=== PATIENT | female | born 1960 | race Caucasian/White ===

== ENCOUNTER 2017-07-27 22:14 | Inpatient (IN) | payer OTHER ==
[2017-07-27 23:44] LABS: ADD MAN DIFF? NO
[2017-07-27 23:46] LABS: ABNORMAL IP MESSAGE 1; BASOPHILS % 0.1 % (0.0-2.0); EOSINOPHILS # 0.1 10^3/ul (0.0-0.5); EOSINOPHILS % 1.3 % (0.0-7.0); HEMATOCRIT 34.3 % (37.0-47.0); HEMOGLOBIN 11.6 g/dl (12.0-16.0); LYMPHOCYTES # 0.4 10^3/ul (0.8-2.9); LYMPHOCYTES % 3.9 % (15.0-51.0); MEAN CORPUSCULAR HEMOGLOBIN 29.7 pg (29.0-33.0); MEAN CORPUSCULAR HGB CONC 33.8 g/dl (32.0-37.0); MEAN CORPUSCULAR VOLUME 87.9 fl (82.0-101.0); MONOCYTE # 0.6 10^3/ul (0.3-0.9); MONOCYTES % 6.3 % (0.0-11.0); NEUTROPHIL # 8.5 10^3/ul (1.6-7.5); NEUTROPHILS % 88.1 % (39.0-77.0); PLATELET COUNT 282 10^3/UL (140-415); RED CELL DISTRIBUTION WIDTH 13.3 % (11.5-14.5)
[2017-07-27 23:46] LABS: WHITE BLOOD COUNT 9.7 10^3/ul (4.8-10.8)
[2017-07-27 23:52] LABS: POSITIVE DIFF @See below
[2017-07-27] MEDS: SOD CHLORIDE 0.9% 1,000 ML IV (23:55)
[2017-07-27] MEDS: HYDROmorphONE 1 MG/ML SYG IV (23:55)
[2017-07-27] MEDS: ONDANSETRON 4 MG INJ IV (23:55)
[2017-07-28 00:03] LABS: ALANINE AMINOTRANSFERASE 31 IU/L (13-69); ALBUMIN 4.1 g/dl (3.3-4.9); ALBUMIN/GLOBULIN RATIO 1.17; ALKALINE PHOSPHATASE 85 IU/L (42-121); ANION GAP 19 (8-16); ASPARTATE AMINO TRANSFERASE 20 IU/L (15-46); BILIRUBIN,INDIRECT 0.1 mg/dl (0-1.1); BILIRUBIN,TOTAL 0.1 mg/dl (0.2-1.3); BLOOD UREA NITROGEN 15 mg/dl (7-20); CALCIUM 9.2 mg/dl (8.4-10.2); CARBON DIOXIDE 27 mmol/L (21-31); CHLORIDE 101 mmol/L (97-110); CREATININE 0.68 mg/dl (0.44-1.00); GLUCOSE 123 mg/dl (70-220); LIPASE 234 U/L (23-300); POTASSIUM 3.9 mmol/L (3.5-5.1); SODIUM 143 mmol/L (135-144); TOTAL PROTEIN 7.6 g/dl (6.1-8.1)
[2017-07-28 00:45] LABS: ADD UMIC YES; UR ASCORBIC ACID NEGATIVE (NEGATIVE); UR BACTERIA FEW /HPF (NONE SEEN); UR BILIRUBIN (Dip) NEGATIVE (NEGATIVE); UR BLOOD (Dip) NEGATIVE (NEGATIVE); UR CLARITY CLEAR (CLEAR); UR COLOR YELLOW (YELLOW); UR GLUCOSE (Dip) NEGATIVE (NEGATIVE); UR KETONES (Dip) NEGATIVE (NEGATIVE); UR LEUKOCYTE ESTERASE (Dip) 2+ Leu/ul (NEGATIVE); UR NITRITE (Dip) NEGATIVE (NEGATIVE); UR RBC 3 /HPF (0-5); UR SPECIFIC GRAVITY (Dip) 1.014 (1.003-1.030); UR TOTAL PROTEIN (Dip) 1+ mg/dl (NEGATIVE); UR UROBILINOGEN (Dip) NEGATIVE (NEGATIVE); UR WBC 10 /HPF (0-5)
[2017-07-28] MEDS: CEFTRIAXONE 1 GM/50 ML (PMX) 50 ML IVPB (01:09)
[2017-07-28] MEDS: SOD CHLORIDE 0.9% 1,000 ML IV (01:09)
[2017-07-28] MEDS ORDERED: NACL 0.9% 3 ML SYG IV (03:00)
[2017-07-28] MEDS ORDERED: morphine 2 MG INJ IV (03:00)
[2017-07-28] MEDS: DEXTROSE 5%-0.45% NACL 1,000 ML IV ×3 (03:44→15:18)
[2017-07-28] MEDS: metroNIDAZOLE 500 MG/NS (PMX) 100 ML IVPB ×3 (04:36→19:05)
[2017-07-28 06:55] LABS: WHITE BLOOD COUNT 8.2 10^3/ul (4.8-10.8)
[2017-07-28 06:55] LABS: ABNORMAL IP MESSAGE 1; HEMATOCRIT 30.5 % (37.0-47.0); HEMOGLOBIN 10.3 g/dl (12.0-16.0); MEAN CORPUSCULAR HEMOGLOBIN 29.9 pg (29.0-33.0); MEAN CORPUSCULAR HGB CONC 33.8 g/dl (32.0-37.0); MEAN CORPUSCULAR VOLUME 88.4 fl (82.0-101.0); MEAN PLATELET VOLUME 9.3 fl (7.4-10.4); PLATELET COUNT 251 10^3/UL (140-415); RED BLOOD COUNT 3.45 10^6/ul (4.20-5.40); RED CELL DISTRIBUTION WIDTH 13.4 % (11.5-14.5)
[2017-07-28 07:13] LABS: ADD MAN DIFF? YES; POSITIVE DIFF @See below
[2017-07-28 07:15] LABS: ALANINE AMINOTRANSFERASE 32 IU/L (13-69); ALBUMIN 3.4 g/dl (3.3-4.9); ALBUMIN/GLOBULIN RATIO 1.13; ALKALINE PHOSPHATASE 68 IU/L (42-121); ANION GAP 19 (8-16); ASPARTATE AMINO TRANSFERASE 21 IU/L (15-46); BILIRUBIN,INDIRECT 0.1 mg/dl (0-1.1); BILIRUBIN,TOTAL 0.1 mg/dl (0.2-1.3); BLOOD UREA NITROGEN 11 mg/dl (7-20); CALCIUM 8.4 mg/dl (8.4-10.2); CARBON DIOXIDE 24 mmol/L (21-31); CHLORIDE 104 mmol/L (97-110); CREATININE 0.53 mg/dl (0.44-1.00); GLUCOSE 128 mg/dl (70-220); MAGNESIUM 1.5 mg/dl (1.7-2.5); PHOSPHORUS 3.7 mg/dl (2.5-4.9); POTASSIUM 3.9 mmol/L (3.5-5.1); SODIUM 143 mmol/L (135-144); TOTAL PROTEIN 6.4 g/dl (6.1-8.1)
[2017-07-28] MEDS: CIPROFLOXACIN 400MG/D5W 200 ML IVPB ×2 (09:44→21:23)
[2017-07-28] MEDS: FAMOTIDINE 20 MG INJ IV ×2 (09:45→21:23)
[2017-07-28 10:09] LABS: BAND NEUTROPHILS #M 0.9 10^3/ul (0.0-0.6); BAND NEUTROPHILS % (M) 11 % (0-4); LYMPHOCYTES # 0.2 10^3/ul (0.8-2.9); LYMPHOCYTES #M 0.1 10^3/ul (0.8-2.9); LYMPHOCYTES % (M) 2 % (15-51); MONOCYTE # 0.2 10^3/ul (0.3-0.9); MONOCYTE #M 0.1 10^3/ul (0.3-0.9); MONOCYTES % (M) 2 % (0-11); SEGMENTED NEUTROPHILS (M) % 85 % (39-77)
[2017-07-28 10:10] LABS: ANISOCYTOSIS 1+ (0-0)
[2017-07-28] MEDS: DIATR MEGLU/DIATRIZOATE SODIUM 120 ML BTL ×2 (12:07→13:00)
[2017-07-28] MEDS: ONDANSETRON 4 MG INJ IV (15:18)
[2017-07-28] MEDS: MAGNESIUM SULFATE 2 GM/50 ML 50 ML IVPB (17:20)
[2017-07-29] MEDS: metroNIDAZOLE 500 MG/NS (PMX) 100 ML IVPB ×3 (02:40→18:30)
[2017-07-29] MEDS: DEXTROSE 5%-0.45% NACL 1,000 ML IV ×3 (02:40→22:50)
[2017-07-29 05:05] LABS: ADD MAN DIFF? NO
[2017-07-29 05:06] LABS: ABNORMAL IP MESSAGE 1; BASOPHILS % 0.3 % (0.0-2.0); EOSINOPHILS # 0.1 10^3/ul (0.0-0.5); HEMATOCRIT 30.1 % (37.0-47.0); HEMOGLOBIN 10.1 g/dl (12.0-16.0); LYMPHOCYTES # 0.3 10^3/ul (0.8-2.9); LYMPHOCYTES % 10.4 % (15.0-51.0); MEAN CORPUSCULAR HEMOGLOBIN 29.4 pg (29.0-33.0); MEAN CORPUSCULAR HGB CONC 33.6 g/dl (32.0-37.0); MEAN CORPUSCULAR VOLUME 87.8 fl (82.0-101.0); MEAN PLATELET VOLUME 8.7 fl (7.4-10.4); MONOCYTE # 0.4 10^3/ul (0.3-0.9); MONOCYTES % 13.1 % (0.0-11.0); NEUTROPHIL # 2.1 10^3/ul (1.6-7.5); NEUTROPHILS % 71.9 % (39.0-77.0); PLATELET COUNT 224 10^3/UL (140-415); RED BLOOD COUNT 3.43 10^6/ul (4.20-5.40); RED CELL DISTRIBUTION WIDTH 13.2 % (11.5-14.5)
[2017-07-29 05:18] LABS: POSITIVE DIFF @See below
[2017-07-29 05:39] LABS: INR 0.98; PARTIAL THROMBOPLASTIN TIME 26.4 Sec (25.0-35.0); PROTIME 13.1 Sec (11.9-14.9)
[2017-07-29 05:51] LABS: ANION GAP 13 (8-16); BLOOD UREA NITROGEN 7 mg/dl (7-20); CALCIUM 8.6 mg/dl (8.4-10.2); CARBON DIOXIDE 28 mmol/L (21-31); CHLORIDE 105 mmol/L (97-110); GLUCOSE 111 mg/dl (70-220); PHOSPHORUS 3.1 mg/dl (2.5-4.9); POTASSIUM 3.5 mmol/L (3.5-5.1); SODIUM 142 mmol/L (135-144)
[2017-07-29 05:53] LABS: FREE T4 (FREE THYROXINE) 1.01 ng/dl (0.64-1.79)
[2017-07-29 06:11] LABS: CHOLESTEROL 159 mg/dl (100-200)
[2017-07-29 06:11] LABS: CHOL/HDL RATIO 2.5 RATIO; HDL CHOLESTEROL 62 mg/dl (37-92); LDL CHOLESTEROL,CALCULATED 81 mg/dl; TRIGLYCERIDES 79 mg/dl (0-149)
[2017-07-29 07:54] LABS: HEMOGLOBIN A1C 5.8 % (0-5.9)
[2017-07-29] MEDS: CIPROFLOXACIN 400MG/D5W 200 ML IVPB ×2 (08:55→20:30)
[2017-07-29] MEDS: FAMOTIDINE 20 MG INJ IV ×2 (08:55→20:23)
[2017-07-29] MEDS: ONDANSETRON 4 MG INJ IV ×2 (14:40→20:22)
[2017-07-29] MEDS: LOPERAMIDE 2 MG CAP PO ×2 (17:02→20:22)
[2017-07-30] MEDS: ONDANSETRON 4 MG INJ IV ×4 (02:39→20:26)
[2017-07-30] MEDS: metroNIDAZOLE 500 MG/NS (PMX) 100 ML IVPB ×3 (02:39→18:34)
[2017-07-30] MEDS: DEXTROSE 5%-0.45% NACL 1,000 ML IV ×3 (02:53→17:37)
[2017-07-30 06:03] LABS: ADD MAN DIFF? NO
[2017-07-30 07:02] LABS: ABNORMAL IP MESSAGE 1; BASOPHILS % 0.4 % (0.0-2.0); EOSINOPHILS # 0.1 10^3/ul (0.0-0.5); EOSINOPHILS % 3.9 % (0.0-7.0); HEMOGLOBIN 9.9 g/dl (12.0-16.0); LYMPHOCYTES # 0.4 10^3/ul (0.8-2.9); LYMPHOCYTES % 15.5 % (15.0-51.0); MEAN CORPUSCULAR HEMOGLOBIN 30.4 pg (29.0-33.0); MEAN CORPUSCULAR HGB CONC 34.1 g/dl (32.0-37.0); MEAN PLATELET VOLUME 9.2 fl (7.4-10.4); MONOCYTE # 0.4 10^3/ul (0.3-0.9); MONOCYTES % 17.1 % (0.0-11.0); NEUTROPHIL # 1.6 10^3/ul (1.6-7.5); NEUTROPHILS % 62.3 % (39.0-77.0); PLATELET COUNT 208 10^3/UL (140-415); RED BLOOD COUNT 3.26 10^6/ul (4.20-5.40)
[2017-07-30 07:02] LABS: WHITE BLOOD COUNT 2.6 10^3/ul (4.8-10.8)
[2017-07-30 07:16] LABS: POSITIVE DIFF @See below
[2017-07-30 07:21] LABS: ANION GAP 12 (8-16); BLOOD UREA NITROGEN 3 mg/dl (7-20); CALCIUM 8.6 mg/dl (8.4-10.2); CARBON DIOXIDE 28 mmol/L (21-31); CHLORIDE 107 mmol/L (97-110); CREATININE 0.57 mg/dl (0.44-1.00); GLUCOSE 116 mg/dl (70-220); POTASSIUM 3.1 mmol/L (3.5-5.1); SODIUM 144 mmol/L (135-144)
[2017-07-30 08:26] LABS: PHOSPHORUS 3.3 mg/dl (2.5-4.9)
[2017-07-30 08:26] LABS: MAGNESIUM 1.7 mg/dl (1.7-2.5)
[2017-07-30] MEDS: FAMOTIDINE 20 MG INJ IV ×2 (08:42→20:26)
[2017-07-30] MEDS: LOPERAMIDE 2 MG CAP PO ×4 (08:42→20:26)
[2017-07-30] MEDS: CIPROFLOXACIN 400MG/D5W 200 ML IVPB ×2 (09:11→20:30)
[2017-07-30] MEDS: POTASSIUM CHLORIDE 20 MEQ POWDER FOR ORAL SOLN PO (10:03)
[2017-07-31] MEDS: metroNIDAZOLE 500 MG/NS (PMX) 100 ML IVPB ×3 (02:49→18:37)
[2017-07-31] MEDS: ONDANSETRON 4 MG INJ IV ×4 (02:49→20:46)
[2017-07-31] MEDS: DEXTROSE 5%-0.45% NACL 1,000 ML IV ×3 (04:17→16:07)
[2017-07-31 06:20] LABS: WHITE BLOOD COUNT 2.1 10^3/ul (4.8-10.8)
[2017-07-31 06:20] LABS: ABNORMAL IP MESSAGE 1; HEMATOCRIT 28.7 % (37.0-47.0); HEMOGLOBIN 9.7 g/dl (12.0-16.0); MEAN CORPUSCULAR HEMOGLOBIN 29.7 pg (29.0-33.0); MEAN CORPUSCULAR HGB CONC 33.8 g/dl (32.0-37.0); MEAN CORPUSCULAR VOLUME 87.8 fl (82.0-101.0); PLATELET COUNT 219 10^3/UL (140-415); RED BLOOD COUNT 3.27 10^6/ul (4.20-5.40); RED CELL DISTRIBUTION WIDTH 13.1 % (11.5-14.5)
[2017-07-31 06:48] LABS: POSITIVE DIFF @See below
[2017-07-31 06:49] LABS: ADD MAN DIFF? YES
[2017-07-31 06:51] LABS: ANION GAP 12 (8-16); CALCIUM 8.8 mg/dl (8.4-10.2); CARBON DIOXIDE 30 mmol/L (21-31); CHLORIDE 105 mmol/L (97-110); CREATININE 0.53 mg/dl (0.44-1.00); GLUCOSE 125 mg/dl (70-220); POTASSIUM 3.1 mmol/L (3.5-5.1); SODIUM 144 mmol/L (135-144)
[2017-07-31 06:55] LABS: BLOOD UREA NITROGEN < 2 mg/dl (7-20)
[2017-07-31] MEDS: FAMOTIDINE 20 MG INJ IV (08:17)
[2017-07-31] MEDS: LOPERAMIDE 2 MG CAP PO ×4 (08:18→20:46)
[2017-07-31] MEDS: CIPROFLOXACIN 400MG/D5W 200 ML IVPB ×2 (08:18→20:46)
[2017-07-31 09:36] LABS: BAND NEUTROPHILS % (M) 3 % (0-4); EOSINOPHILS % (M) 2 % (0.0-7.0); LYMPHOCYTES # 0.3 10^3/ul (0.8-2.9); LYMPHOCYTES #M 0.2 10^3/ul (0.8-2.9); LYMPHOCYTES % (M) 12 % (15-51); MONOCYTE # 0.4 10^3/ul (0.3-0.9); MONOCYTE #M 0.4 10^3/ul (0.3-0.9); MONOCYTES % (M) 20 % (0-11); SEG NEUT #M 1.3 10^3/ul (1.7-7.5); SEGMENTED NEUTROPHILS (M) % 63 % (39-77)
[2017-07-31 09:37] LABS: PLATELET ESTIMATE NORMAL
[2017-08-01] MEDS: ONDANSETRON 4 MG INJ IV ×4 (02:00→20:58)
[2017-08-01] MEDS: metroNIDAZOLE 500 MG/NS (PMX) 100 ML IVPB ×3 (02:06→22:16)
[2017-08-01] MEDS ORDERED: PANTOPRAZOLE 40 MG INJ (04:57)
[2017-08-01] MEDS: DEXTROSE 5%-0.45% NACL 1,000 ML IV ×3 (05:09→17:17)
[2017-08-01] MEDS: PANTOPRAZOLE 40 MG INJ IV (05:10)
[2017-08-01 05:53] LABS: ADD MAN DIFF? NO
[2017-08-01 05:57] LABS: WHITE BLOOD COUNT 1.5 10^3/ul (4.8-10.8)
[2017-08-01 05:57] LABS: ABNORMAL IP MESSAGE 1; BASOPHILS % 0.7 % (0.0-2.0); EOSINOPHILS # 0.1 10^3/ul (0.0-0.5); EOSINOPHILS % 5.5 % (0.0-7.0); HEMATOCRIT 28.4 % (37.0-47.0); HEMOGLOBIN 9.8 g/dl (12.0-16.0); LYMPHOCYTES # 0.3 10^3/ul (0.8-2.9); LYMPHOCYTES % 18.5 % (15.0-51.0); MEAN CORPUSCULAR HEMOGLOBIN 29.9 pg (29.0-33.0); MEAN CORPUSCULAR HGB CONC 34.5 g/dl (32.0-37.0); MEAN CORPUSCULAR VOLUME 86.6 fl (82.0-101.0); MEAN PLATELET VOLUME 9.1 fl (7.4-10.4); MONOCYTE # 0.4 10^3/ul (0.3-0.9); MONOCYTES % 30.1 % (0.0-11.0); NEUTROPHIL # 0.7 10^3/ul (1.6-7.5); NEUTROPHILS % 45.2 % (39.0-77.0); PLATELET COUNT 244 10^3/UL (140-415); RED BLOOD COUNT 3.28 10^6/ul (4.20-5.40); RED CELL DISTRIBUTION WIDTH 12.9 % (11.5-14.5)
[2017-08-01 06:14] LABS: POSITIVE DIFF @See below
[2017-08-01 06:50] LABS: ANION GAP 12 (8-16); BLOOD UREA NITROGEN 2 mg/dl (7-20); CALCIUM 8.5 mg/dl (8.4-10.2); CARBON DIOXIDE 30 mmol/L (21-31); CHLORIDE 103 mmol/L (97-110); CREATININE 0.51 mg/dl (0.44-1.00); GLUCOSE 129 mg/dl (70-220); SODIUM 142 mmol/L (135-144)
[2017-08-01 07:14] LABS: POTASSIUM 2.7 mmol/L (3.5-5.1)
[2017-08-01] MEDS: CIPROFLOXACIN 400MG/D5W 200 ML IVPB ×2 (08:36→20:58)
[2017-08-01] MEDS: LOPERAMIDE 2 MG CAP PO ×4 (08:37→20:58)
[2017-08-01] MEDS: POTASSIUM CHLORIDE 100 ML IVPB ×4 (08:37→23:26)
[2017-08-01 08:59] LABS: ANISOCYTOSIS 1+ (0-0); BAND NEUTROPHILS #M 0.2 10^3/ul (0.0-0.6); BAND NEUTROPHILS % (M) 17 % (0-4); EOSINOPHILS % (M) 6 % (0-7); LYMPHOCYTES #M 0.2 10^3/ul (0.8-2.9); LYMPHOCYTES % (M) 15 % (15-51); MICROCYTOSIS 1+ (0-0); MONOCYTE #M 0.3 10^3/ul (0.3-0.9); MONOCYTES % (M) 26 % (0-11); MYELOCYTES % (M) 1 % (0-0); PLATELET ESTIMATE NORMAL; POLYCHROMASIA 3+ (0-0); SEG NEUT #M 0.5 10^3/ul (1.6-7.5); SEGMENTED NEUTROPHILS (M) % 35 % (39-77); SMUDGE%M 3 % (0-0)
[2017-08-01 16:19] LABS: POTASSIUM 3.2 mmol/L (3.5-5.1)
[2017-08-01] MEDS: PROPOFOL 20 ML (19:15)
[2017-08-01] MEDS: LIDOCAINE 2% (SDV) 5 ML INJ (19:15)
[2017-08-01] MEDS: MIDAZOLAM 1 MG/ML 2 ML INJ (19:15)
[2017-08-01] MEDS ORDERED: POTASSIUM CHLORIDE 100 ML IVPB (19:30)
[2017-08-01 22:00] LABS: POTASSIUM 2.8 mmol/L (3.5-5.1)
[2017-08-02] MEDS: METOCLOPRAMIDE 10 MG INJ IV ×4 (00:34→17:19)
[2017-08-02] MEDS: POTASSIUM CHLORIDE 100 ML IVPB (02:04)
[2017-08-02] MEDS: ONDANSETRON 4 MG INJ IV ×4 (02:05→20:00)
[2017-08-02] MEDS: DEXTROSE 5%-0.45% NACL 1,000 ML IV ×4 (02:06→22:37)
[2017-08-02] MEDS: PANTOPRAZOLE 40 MG INJ IV (05:21)
[2017-08-02] MEDS: metroNIDAZOLE 500 MG/NS (PMX) 100 ML IVPB ×3 (05:21→22:37)
[2017-08-02 07:14] LABS: ADD MAN DIFF? NO
[2017-08-02 07:23] LABS: ABNORMAL IP MESSAGE 1; BASOPHILS % 0.5 % (0.0-2.0); EOSINOPHILS # 0.1 10^3/ul (0.0-0.5); EOSINOPHILS % 3.5 % (0.0-7.0); HEMATOCRIT 28.7 % (37.0-47.0); LYMPHOCYTES # 0.3 10^3/ul (0.8-2.9); LYMPHOCYTES % 13.1 % (15.0-51.0); MEAN CORPUSCULAR HEMOGLOBIN 30.4 pg (29.0-33.0); MEAN CORPUSCULAR HGB CONC 34.8 g/dl (32.0-37.0); MEAN CORPUSCULAR VOLUME 87.2 fl (82.0-101.0); MEAN PLATELET VOLUME 8.9 fl (7.4-10.4); MONOCYTE # 0.5 10^3/ul (0.3-0.9); MONOCYTES % 26.1 % (0.0-11.0); NEUTROPHIL # 1.1 10^3/ul (1.6-7.5); NEUTROPHILS % 56.3 % (39.0-77.0); PLATELET COUNT 269 10^3/UL (140-415); RED BLOOD COUNT 3.29 10^6/ul (4.20-5.40); RED CELL DISTRIBUTION WIDTH 13.3 % (11.5-14.5)
[2017-08-02 07:27] LABS: POSITIVE DIFF @See below
[2017-08-02 07:51] LABS: ANION GAP 13 (8-16); BLOOD UREA NITROGEN 3 mg/dl (7-20); CALCIUM 9.1 mg/dl (8.4-10.2); CARBON DIOXIDE 31 mmol/L (21-31); CHLORIDE 104 mmol/L (97-110); GLUCOSE 107 mg/dl (70-220); POTASSIUM 3.5 mmol/L (3.5-5.1); SODIUM 144 mmol/L (135-144)
[2017-08-02] MEDS: CIPROFLOXACIN 400MG/D5W 200 ML IVPB ×2 (08:21→22:36)
[2017-08-02] MEDS: LOPERAMIDE 2 MG CAP PO ×3 (08:22→17:00)
[2017-08-02] MEDS: SOD CHLORIDE 0.9% 100 ML (08:32)
[2017-08-02] MEDS: IOHEXOL 300MG/ML 150 ML BTL (08:33)
[2017-08-02] MEDS: CEFTRIAXONE 1 GM/50 ML (PMX) 50 ML IVPB (16:30)
[2017-08-02] MEDS ORDERED: LOPERAMIDE 2 MG CAP PO (21:00)
[2017-08-03] MEDS: ONDANSETRON 4 MG INJ IV ×3 (02:00→14:06)
[2017-08-03] MEDS: METOCLOPRAMIDE 10 MG INJ IV ×4 (05:17→17:34)
[2017-08-03] MEDS: metroNIDAZOLE 500 MG/NS (PMX) 100 ML IVPB ×2 (05:17→14:07)
[2017-08-03] MEDS: PANTOPRAZOLE 40 MG INJ IV (05:17)
[2017-08-03 06:21] LABS: ADD MAN DIFF? NO
[2017-08-03 06:29] LABS: ABNORMAL IP MESSAGE 1; BASOPHILS % 0.5 % (0.0-2.0); EOSINOPHILS # 0.1 10^3/ul (0.0-0.5); EOSINOPHILS % 4.3 % (0.0-7.0); HEMATOCRIT 28.4 % (37.0-47.0); HEMOGLOBIN 9.4 g/dl (12.0-16.0); LYMPHOCYTES # 0.4 10^3/ul (0.8-2.9); LYMPHOCYTES % 18.8 % (15.0-51.0); MEAN CORPUSCULAR HEMOGLOBIN 29.2 pg (29.0-33.0); MEAN CORPUSCULAR HGB CONC 33.1 g/dl (32.0-37.0); MEAN CORPUSCULAR VOLUME 88.2 fl (82.0-101.0); MEAN PLATELET VOLUME 8.7 fl (7.4-10.4); MONOCYTE # 0.4 10^3/ul (0.3-0.9); MONOCYTES % 23.1 % (0.0-11.0); NEUTROPHILS % 52.8 % (39.0-77.0); PLATELET COUNT 275 10^3/UL (140-415); RED BLOOD COUNT 3.22 10^6/ul (4.20-5.40); RED CELL DISTRIBUTION WIDTH 13.5 % (11.5-14.5)
[2017-08-03 06:29] LABS: WHITE BLOOD COUNT 1.9 10^3/ul (4.8-10.8)
[2017-08-03 06:35] LABS: POSITIVE DIFF @See below
[2017-08-03 06:55] LABS: ANION GAP 9 (8-16); BLOOD UREA NITROGEN 3 mg/dl (7-20); CALCIUM 8.3 mg/dl (8.4-10.2); CARBON DIOXIDE 31 mmol/L (21-31); CHLORIDE 106 mmol/L (97-110); GLUCOSE 106 mg/dl (70-220); POTASSIUM 3.2 mmol/L (3.5-5.1); SODIUM 143 mmol/L (135-144)
[2017-08-03] MEDS: CIPROFLOXACIN 400MG/D5W 200 ML IVPB (08:13)
[2017-08-03] MEDS: DEXTROSE 5%-0.45% NACL 1,000 ML IV ×2 (10:53→18:53)
[2017-08-03] MEDS: POTASSIUM CHLORIDE (SR) 20 MEQ TAB PO (14:07)
== END 2017-08-03 19:05 | disposition home or self-care (01) | DRG 394 ==
LOC: MS3 07-28 15:00 → E/R 22:14 → PP2 07-28 15:00
PROC: 0DD68ZX Extraction of Stomach, Via Natural or Artificial Opening Endoscopic, Diagnostic (ICD-10-PCS; principal; 2017-08-01 17:30)
DX: K52.0 Gastroenteritis and colitis due to radiation (principal); K56.609 Unspecified intestinal obstruction, unspecified as to partial versus complete obstruction; C55 Malignant neoplasm of uterus, part unspecified; N39.0 Urinary tract infection, site not specified; D72.819 Decreased white blood cell count, unspecified; D64.9 Anemia, unspecified; K29.80 Duodenitis without bleeding; K29.70 Gastritis, unspecified, without bleeding; R19.7 Diarrhea, unspecified
CPT/HCPCS: 36415; 74176; 74250; 80048; 80053; 80061; 81001; 83036; 83690; 83735; 84100; 84132; 84439; 84443; 85025; 85610; 85730; 87045; 87075; 87086; 87177; 87205; 88305; 88312; 93005; 96374; 96375; 99285-25